=== PATIENT | male | born 1975 | race Caucasian/White ===

== ENCOUNTER → 2018-09-05 | Outpatient (CLI) | payer BC ==
--- NOTE | 2018-09-06 09:59 | ECHOF ---
Referral Reason:R01.1 Cardiac Murmur MEASUREMENTS -------- HEIGHT: 180.3 cm WEIGHT: 90.7 kg BP: RVIDd: 2.5 cm (< 3.3) IVSd: 1.2 cm (0.6 - 1.1) LVIDd: 3.4 cm (3.9 - 5.3) LVPWd: 1.4 cm (0.6 - 1.1) IVSs: 1.7 cm LVIDs: 1.4 cm LVPWs: 1.9 cm LAESV Index (A-L): 21.24 ml/m Ao Diam: 2.8 cm (2.0 - 3.7) AV Cusp: 1.7 cm (1.5 - 2.6) LA Diam: 2.9 cm (2.7 - 3.8) EPSS: 0.2 cm RAP: 5.00 mmHg RVSP: 44.00 mmHg MV EF SLOPE: 89.66 mm/s (70 - 150) MV EXCURSION: 2.25 cm (> 18.000) FINDINGS -------- Sinus rhythm. This was a technically good study. The left ventricular size is normal. There is moderate concentric left ventricular hypertrophy. O verall left ventricular systolic function is normal with, an EF between 55 - 60 %. The right ventricle is normal in size. Normal LA size by volume 22+/-6 ml/m2. The right atrial size is normal. Interatrial and interventricular septum intact. The aortic valve is trileaflet and appears structurally normal. The mitral valve leaflets are mildly thickened. Severe mitral regurgitation is present. Moderate prolapse of the posterior mitral valve leaflet. Mild tricuspid regurgitation present. The right ventricular systolic pressure, as measured by Doppl er, is 44.00mmHg. Trace/mild (physiologic) pulmonic regurgitation. The aortic root size is normal. Normal inferior vena cava with normal inspiratory collapse consistent with estimated right atrial pre ssure of 5 mmHg. There is no pericardial effusion. CONCLUSIONS -------- 1. Sinus rhythm. 2. This was a technically good study. 3. The left ventricular size is normal. 4. There is moderate concentric left ventricular hypertrophy. 5. Overall left ventricular systolic function is normal with, an EF between 55 - 60 %. 6. The right ventricle is normal in size. 7. Normal LA size by volume 22+/-6 ml/m2. 8. The right atrial size is normal. 9. Interatrial and interventricular septum intact. 10. The aortic valve is trileaflet and appears structurally normal. 11. The mitral valve leaflets are mildly thickened. 12. Severe mitral regurgitation is present. 13. Moderate prolapse of the posterior mitral valve leaflet. 14. Mild tricuspid regurgitation present. 15. The right ventricular systolic pressure, as measured by Doppler, is 44.00mmHg. 16. Trace/mild (physiologic) pulmonic regurgitation. 17. The aortic root size is normal. 18. Normal inferior vena cava with normal inspiratory collapse consistent with estimated right atrial pressure of 5 mmHg. 19. There is no pericardial effusion. DIRECTOR OF OFFICIATING: Trini Patel RDCS
== END ==
LOC: RADECHMAIN 14:52
PROVIDERS: ATTEND Physician Assistant
DX: R01.1 Cardiac murmur, unspecified (principal); I08.1 Rheumatic disorders of both mitral and tricuspid valves
CPT/HCPCS: 93306

== ENCOUNTER → 2018-11-20 | Day surgery (SDC) | payer BC ==
[2018-11-15 15:25] VITALS: BMI 28.3
[~2018-11-20] MED LIST: BENZOCAINE SPRAY 1 CAN MUCOUS MEM ONE; MIDAZOLAM (PF) 2 MG/2 ML VIAL IV ONE; SODIUM CHLORIDE 0.9% 1,000 ML IV ONE; SODIUM CHLORIDE 0.9% 1,000 ML IV SCH; fentaNYL (PF) 50 MCG/ML 2 ML AMP IV ONE; fentaNYL (PF) 50 MCG/ML 2 ML AMP ONE
[2018-11-20 08:18] VITALS: TEMP 97.8
[2018-11-20 09:19] VITALS: RESP 14
--- NOTE | 2018-11-20 09:49 | ECHOT ---
TRANSESOPHAGEAL ECHOCARDIOGRAM INDICATION: Mitral regurgitation. PROCEDURE NOTE: After obtaining informed consent, transesophageal echocardiogram was performed in left lateral position using an Omni plane probe. Local and IV sedation were obtained using Xylocaine spray, 3 mg of Versed and 50 mcg of fentanyl. The patient was gagging and actually pulled out the tube, so I had to reintubate him, but otherwise tolerated the procedure well. The patient received moderate conscious sedation and total sedation time was 11 minute. FINDINGS: 1. Mitral valve - There is prolapse of the posterior mitral leaflet with moderate to severe anteriorly directed mitral regurgitation. 2. Left ventricle has normal size and systolic function with an ejection fraction of 60%. 3. There is mild left atrial enlargement. 4. Right atrium right ventricle exam within normal limits. 5. Interatrial septum. There is no evidence of dfbn-vl-[id number] shunt by color-flow Doppler or nlquq-ct-ywqc shunt by agitated saline contrast study. 6. Aortic valve is a 3-leaflet valve. There is no evidence of exercise regurgitation. 7. There is mild tricuspid regurgitation. 8. Aorta is free of significant atherosclerotic changes. CONCLUSION: 1. Moderate to severe anteriorly directed mitral regurgitation secondary to posterior mitral valve prolapse. 2. Normal left ventricular size and systolic function. PLAN: Patient does not require mitral valve repair at this time. Will continue with careful monitoring every 6 months and repeat echoes every year. MMODL / IJN: [id number] /
[2018-11-20 11:05] VITALS: BP 120/66; PULSE 74
== END ==
LOC: CATHCVL 07:58
PROVIDERS: ATTEND Internal Medicine Cardiovascular Disease
DX: I08.1 Rheumatic disorders of both mitral and tricuspid valves (principal); I34.1 Nonrheumatic mitral (valve) prolapse; I10 Essential (primary) hypertension; R94.31 Abnormal electrocardiogram [ECG] [EKG]; E78.2 Mixed hyperlipidemia; Z82.49 Family history of ischemic heart disease and other diseases of the circulatory system; Z79.899 Other long term (current) drug therapy; Z88.0 Allergy status to penicillin
CPT/HCPCS: 93312; 93325; J3010; J2250; 93320

== ENCOUNTER 2018-11-23 10:08 | Emergency (ER) | payer BC ==
[2018-11-23] MEDS ORDERED: SODIUM CHLORIDE 0.9% 1,000 ML IV STA (10:32)
[2018-11-23] MEDS ORDERED: KETOROLAC 30 MG/ML 1 ML VIAL IVP STA (10:33)
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
[2018-11-23 11:18] LABS: Basophils % (A) 0 %; Eosinophils # (A) 0.1 k/uL (0-0.7); Eosinophils % (A) 1 %; HCT 47.9 % (39.0-53.0); HGB 15.8 gm/dL (13.0-17.5); Lymphocytes # (A) 1.3 k/uL (1.0-4.8); Lymphocytes % (A) 13 %; MCH 31.7 pg (25.0-35.0); MCV 95.9 fL (80.0-100.0); Mean Platelet Volume 6.7; Monocytes # (A) 0.4 k/uL (0-1.0); Monocytes % (A) 4 %; Neutrophils # (A) 8.7 k/uL (1.3-7.7); Neutrophils % (A) 82 %; Platelet Count 191 k/uL (150-450); RDW 14.4 % (11.5-15.5); WBC 10.6 k/uL (3.8-10.6)
[2018-11-23 11:26] LABS: Albumin 4.6 g/dL (3.5-5.0); Calcium 9.9 mg/dL (8.4-10.2); Total Bilirubin 0.7 mg/dL (0.2-1.3); Total Protein 7.5 g/dL (6.3-8.2)
--- NOTE | 2018-11-23 11:31 | US ---
EXAMINATION TYPE: US scrotum with doppler. Grayscale and color Doppler Duplex imaging performed of cheo hung scrotum. DATE OF EXAM: 11/23/2018 COMPARISON: NONE CLINICAL HISTORY: Pain. Extreme pain today in testicle, specifically right RLQ/inguinal canal, no inj ury, no bulging per patient EXAM MEASUREMENTS: TESTICLES: Right Testicle: 4.8 x 3.3 x 2.1 cm Left Testicle: 4.4 x 3.1 x 2.6 cm EPIDIDYMIS HEAD: Right Epididymis: 0.9 cm Left Epididymis: 1.1 cm Doppler performed to assess for testicular vascularity; testicular echotexture is homogenous and symm etric. Arterial waveform and color-flow are present within both testes. Presence of hydroceles: mil d bilaterally Presence of varicoceles: no Scanned RLQ/Inguinal canal at area of pain - no obvious hernia or abnormality seen IMPRESSION: Normal testicular ultrasound. Small hydroceles
[2018-11-23 11:59] LABS: Amorphous Sediment,Urine Occasional /hpf; Appearance,Urine Clear (Clear); Bilirubin,Urine Negative (Negative); Blood,Urine Large (Negative); Color,Urine Yellow; Glucose,Urine (UA) Negative (Negative); Ketones,Urine Negative (Negative); Leukocyte Esterase,Urine Negative (Negative); Mucus,Urine Few /hpf; Nitrite,Urine Negative (Negative); PH, Urine 5.5 (5.0-8.0); Protein,Urine Trace (Negative); RBC,Urine 182 /hpf (0-5); Specific Gravity,Urine 1.018 (1.001-1.035); Urobilinogen,Urine <2.0 mg/dL (<2.0); WBC,Urine 3 /hpf (0-5)
--- NOTE | 2018-11-23 12:08 | CT ---
EXAMINATION TYPE: CT abdomen pelvis wo con DATE OF EXAM: 11/23/2018 COMPARISON: Ultrasound same date HISTORY: testicular pain and swelling, hernia vs renal stone CT DLP: 578.1 mGycm Automated exposure control for dose reduction was used. TECHNIQUE: Helical acquisition of images from the lung bases through the pelvis. FINDINGS: Lack of intravenous contrast could compromise the exam. Small umbilical hernia contains fat . LUNG BASES: Minimal patchy basilar density posteriorly likely represents atelectatic change, no pleur al or pericardial effusion AORTA: No significant abnormality is appreciated. LIVER/GB: No significant abnormality is appreciated. PANCREAS: No significant abnormality is seen. SPLEEN: No significant abnormality is seen. ADRENALS: No significant abnormality is seen. KIDNEYS: Right kidney shows perinephric inflammatory change. There is a nonobstructive calculus at th e mid to lower pole measuring approximately 5 mm. There is some periureteral increased attenuation. S ome mild prominence of the right ureter. REPRODUCTIVE ORGANS: No significant abnormality is seen. URINARY BLADDER: Small dependent calculus is present within the posterior bladder measuring approxim ately 4 mm BOWEL: No significant abnormality is seen. Appendix is normal. FREE AIR: No Free Air is visible. ASCITES: None visible. PELVIC ADENOPATHY: None visualized. RETROPERITONEAL ADENOPATHY: No Retroperitoneal Adenopathy visible. OSSEOUS STRUCTURES: Degenerative disc changes noted at the lumbosacral junction, there is vacuum phe nomenon and loss of disc height. IMPRESSION: RIGHT-SIDED NEPHROLITHIASIS. CALCULUS WITHIN THE URINARY BLADDER LIKELY DUE TO RECENTLY PASSED URETER AL CALCULUS
[2018-11-23 13:18] VITALS: BP 147/87; PULSE 78; RESP 18; TEMP 97.5
== END 2018-11-23 13:16 | disposition home or self-care (01) ==
LOC: EC 10:08
DX: N20.0 Calculus of kidney (principal); N43.3 Hydrocele, unspecified; N50.811 Right testicular pain; E78.5 Hyperlipidemia, unspecified; I10 Essential (primary) hypertension; Z88.0 Allergy status to penicillin; Z79.899 Other long term (current) drug therapy
CPT/HCPCS: 36415; 80053; 85025; 81001; 93975; 76870; 74176; 99284; 96374; 96361; J1885

== ENCOUNTER → 2019-01-07 | Outpatient (CLI) | payer BC ==
[2019-01-07 18:02] LABS: Appearance,Urine Clear (Clear); Bilirubin,Urine Negative (Negative); Blood,Urine Negative (Negative); Color,Urine Yellow; Glucose,Urine (UA) Negative (Negative); Ketones,Urine Negative (Negative); Leukocyte Esterase,Urine Negative (Negative); Nitrite,Urine Negative (Negative); Protein,Urine Negative (Negative); Specific Gravity,Urine 1.023 (1.001-1.035)
[2019-01-07 18:03] LABS: Basophils # (A) 0.1 k/uL (0-0.2); Basophils % (A) 1 %; Eosinophils # (A) 0.1 k/uL (0-0.7); Eosinophils % (A) 1 %; HGB 16.6 gm/dL (13.0-17.5); Lymphocytes # (A) 2.5 k/uL (1.0-4.8); Lymphocytes % (A) 38 %; MCH 31.3 pg (25.0-35.0); MCHC 33.1 g/dL (31.0-37.0); MCV 94.7 fL (80.0-100.0); Mean Platelet Volume 6.5; Monocytes # (A) 0.5 k/uL (0-1.0); Monocytes % (A) 7 %; Neutrophils # (A) 3.2 k/uL (1.3-7.7); Neutrophils % (A) 49 %; Platelet Count 225 k/uL (150-450); RBC 5.28 m/uL (4.30-5.90); RDW 12.9 % (11.5-15.5); WBC 6.6 k/uL (3.8-10.6)
[2019-01-07 18:15] LABS: African American GFR (CKD) >90 (>60 ml/min/1.73 sqM); Anion Gap 8 mmol/L; Blood Urea Nitrogen 19 mg/dL (9-20); Carbon Dioxide 28 mmol/L (22-30); Chloride 100 mmol/L (98-107); Potassium 4.2 mmol/L (3.5-5.1); Sodium 136 mmol/L (137-145)
== END | disposition home or self-care (01) ==
LOC: LABPAT 17:19
PROVIDERS: ATTEND Urology
DX: Z01.812 Encounter for preprocedural laboratory examination (principal); N20.0 Calculus of kidney
CPT/HCPCS: 36415; 80051; 81003; 82565; 84520; 85025

== ENCOUNTER 2019-01-14 06:14 | Day surgery (SDC) | payer BC ==
[2019-01-09 17:22] VITALS: BMI 28.3
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
[~2019-01-14 06:14] MED LIST changes: -BENZOCAINE SPRAY 1 CAN MUCOUS MEM ONE; +DEXAMETHASONE SOD PHOSPHATE 10 MG/ML 1 ML VIAL IV ONE; +LACTATED RINGERS 1,000 ML IV SCH; +LIDOCAINE 1% 20 ML VIAL (10MG/ML) FOR IV START INTRADERMA PRN; -MIDAZOLAM (PF) 2 MG/2 ML VIAL IV ONE; +ONDANSETRON 4 MG/2 ML VIAL IVP ONE; +Pre Op ABX Message 1 EACH MISC MISCELLANE ONE; -SODIUM CHLORIDE 0.9% 1,000 ML IV ONE; -SODIUM CHLORIDE 0.9% 1,000 ML IV SCH; -fentaNYL (PF) 50 MCG/ML 2 ML AMP IV ONE; -fentaNYL (PF) 50 MCG/ML 2 ML AMP ONE
[2019-01-14 06:57] VITALS: RESP 16
--- NOTE | 2019-01-14 07:19 | XR ---
EXAMINATION TYPE: XR KUB DATE OF EXAM: 01/14/2019 CLINICAL DATA: 43-year-old male preop for right kidney stone, PHH COMPARISON: None FINDINGS: Nonobstructive bowel gas pattern. Supine imaging limited for assessment free air. Scattered mild stoo l. 2 to 3 mm calculus projecting at the mid to lower pole of the right kidney. Bowel content obscures mu ch of the left renal shadow. Degenerative disc disease at L5-S1. IMPRESSION: A 2 to 3 mm right mid to lower pole renal calculus.
[2019-01-14] MEDS ORDERED: PROPOFOL 10 MG/ML 20 ML VIAL IV ONE (07:43)
[2019-01-14] MEDS ORDERED: fentaNYL (PF) 50 MCG/ML 2 ML AMP ONE (07:43)
[2019-01-14] MEDS ORDERED: MIDAZOLAM 2 MG/2 ML VIAL ONE (07:43)
--- NOTE | 2019-01-14 08:46 | P.OP ---
Date of Procedure: 01/14/19 Preoperative Diagnosis: Right renal calculus Postoperative Diagnosis: Same Procedure(s) Performed: Right extracorporal shockwave lithotripsy (ESWL) Anesthesia: CATALINO Surgeon: Carloz Jimenez Estimated Blood Loss (ml): 0 IV fluids (ml): 400 Pathology: none sent Condition: stable Disposition: PACU Indications for Procedure: The patient is a 43-year-old white male with a history of recurrent urolithiasis. He recently passed a calculus. A computed tomography scan shows a 4-5 mm right lower pole renal calculus, for which he has elected to undergo ESWL. Operative Findings: Questionable fragmentation Description of Procedure: The patient was taken to the operating room and placed on the [employer] Delta II lithotripter in the supine position. The calculus was seen on biplanar fluoroscopy. Once the patient was properly positioned and sedated, lithotripsy was performed. The energy level was gradually increased per protocol, to an energy level of 5. After 200 shocks were administered, a 2 minute pause was instituted per protocol. A total of 2500 shocks were given at a rate of 80 shocks per minute. Fluoroscopy was utilized at a minimum to ensure proper positioning and determine the treatment status. The appearance of the calculus appeared to change, suggesting fragmentation had occurred. The patient tolerated the procedure well was taken to the recovery room in stable condition. Instructions were given to strain the urine, and the patient will follow-up within one week.
[2019-01-14 09:15] VITALS: TEMP 97
[2019-01-14 09:59] VITALS: BP 123/74; PULSE 78
== END 2019-01-14 10:56 | disposition home or self-care (01) ==
LOC: ORWHC2ENDO 06:14
PROVIDERS: ATTEND Urology
DX: N20.0 Calculus of kidney (principal); E78.5 Hyperlipidemia, unspecified; I10 Essential (primary) hypertension; I34.0 Nonrheumatic mitral (valve) insufficiency; Z83.6 Family history of other diseases of the respiratory system; Z82.49 Family history of ischemic heart disease and other diseases of the circulatory system; Z79.82 Long term (current) use of aspirin; Z79.51 Long term (current) use of inhaled steroids; Z79.899 Other long term (current) drug therapy; Z88.0 Allergy status to penicillin
CPT/HCPCS: 74018; 50590; J2250; J1100; J2405; J3010; J2704

== ENCOUNTER → 2019-01-21 | Outpatient (CLI) | payer BC ==
--- NOTE | 2019-01-21 13:11 | XR ---
KUB HISTORY: Postop lithotripsy, kidney stones, N 20.0 Frontal KUB and 2 images correlated to prior KUB 01/14/2019, CT 11/23/2018 No evident renal calcifications. There are overlying loops of bowel gas. No bowel obstruction or pneu moperitoneum. IMPRESSION: Nonspecific bowel gas pattern.
== END | disposition home or self-care (01) ==
LOC: RADXRMAIN 09:52
PROVIDERS: ATTEND Urology
DX: N20.0 Calculus of kidney (principal)
CPT/HCPCS: 74018

== ENCOUNTER → 2019-11-04 | Outpatient (CLI) | payer BC | END | disposition home or self-care (01) | LOC: LABWHC1 13:41 | PROVIDERS: ATTEND Pediatrics | DX: Z20.828 Contact with and (suspected) exposure to other viral communicable diseases (principal) ==

== ENCOUNTER 2023-02-24 06:11 | Day surgery (SDC) | payer BC ==
[2023-02-24] MEDS ORDERED: SODIUM CHLORIDE 0.9% 500 ML 500 ML IV ONE (06:54)
[2023-02-24 06:57] VITALS: RESP 18; TEMP 97.6
[2023-02-24] MEDS ORDERED: fentaNYL (PF) 50 MCG/ML 2 ML AMP ONE (07:36)
[2023-02-24] MEDS: BENZOCAINE SPRAY 1 CAN MUCOUS MEM ONE ×2 (07:40→07:47)
[2023-02-24] MEDS ORDERED: MIDAZOLAM 2 MG/2 ML VIAL IVP ONE (07:50)
[2023-02-24] MEDS ORDERED: fentaNYL (PF) 50 MCG/ML 2 ML AMP IVP ONE (07:50)
--- NOTE | 2023-02-24 08:35 | ECHOT ---
TRANSESOPHAGEAL ECHOCARDIOGRAM INDICATIONS: Mitral regurgitation. PROCEDURE NOTE: After obtaining informed consent, transesophageal echocardiogram was performed in left lateral position using an Omniplane probe. Local and IV sedation were obtained using Xylocaine spray, 2 mg of Versed and 50 mcg of fentanyl. The patient tolerated the procedure well without any obvious immediate complications. Total sedation time was 10 minutes. FINDINGS: 1. Mitral valve. There is prolapse of the P2 segment of the posterior mitral leaflet with moderate to severe eccentric mitral regurgitation. The vena contracta measures out to be 0.4 cm. I do not see any systolic flow reversal in the pulmonary vein. Left atrium, right atrium, right ventricle seen within normal limits. The left ventricle has normal size and an ejection fraction of around 65%. Tricuspid valve shows mild tricuspid regurgitation. Aortic valve is a 3-leaflet valve. There is no evidence of aortic stenosis or regurgitation. There is no evidence of txim-qg-rwmir shunt by color-flow Doppler or zbthe-ex-zgtt shunt by agitated saline contrast study. CONCLUSION: 1. Moderate to severe eccentric mitral regurgitation secondary to prolapse of the P2 scallop of the posterior mitral leaflet. 2. Vena contracta at 0.4 cm and there is no evidence of reversal of color flow into the pulmonary vein. 3. Left ventricle has normal size and systolic function. The end systolic dimension on a 2-D image is less than 4 cm. PLAN: The patient does not need mitral valve surgery at this time. I will see him back in the office in 6 months. MMODL / IJN: [id number] /
[2023-02-24 09:27] VITALS: BP 148/85; PULSE 78
== END 2023-02-24 09:15 | disposition home or self-care (01) ==
LOC: CATHCVL 06:11
PROVIDERS: ATTEND Internal Medicine Cardiovascular Disease
DX: I34.0 Nonrheumatic mitral (valve) insufficiency (principal); I34.1 Nonrheumatic mitral (valve) prolapse; E78.5 Hyperlipidemia, unspecified; Z88.1 Allergy status to other antibiotic agents; Z88.0 Allergy status to penicillin; Z79.899 Other long term (current) drug therapy
CPT/HCPCS: 93312; 93320; 93325; 99152; J2250; J3010

== ENCOUNTER → 2023-08-16 | Outpatient (CLI) | payer BC ==
--- NOTE | 2023-08-16 16:27 | XR ---
EXAMINATION TYPE: XR chest 2V DATE OF EXAM: 08/16/2023 3:39 PM CLINICAL INDICATION:Male, 47 years old with history of R059 COUGH; [facility] COMPARISON: None TECHNIQUE: XR chest 2V Frontal and lateral views of the chest. FINDINGS: Lungs/Pleura: There is no evidence of pleural effusion, focal consolidation, or pneumothorax. Pulmonary vascularity: Unremarkable. Heart/mediastinum: Cardiomediastinal silhouette is unremarkable. Musculoskeletal: No acute osseous pathology. Other findings: None IMPRESSION: No acute cardiopulmonary disease/process.
== END | disposition home or self-care (01) ==
LOC: RADXRYALE 15:27
PROVIDERS: ATTEND Physician Assistant Medical
DX: R05.9 Cough, unspecified (principal)
CPT/HCPCS: 71046

== ENCOUNTER 2024-11-02 14:02 | Emergency (ER) | payer BC ==
[2024-11-02 14:06] VITALS: RESP 20
--- NOTE | 2024-11-02 14:49 | XR ---
EXAMINATION TYPE: XR tibia fibula RT DATE OF EXAM: 11/02/2024 2:44 PM COMPARISON: None CLINICAL INDICATION: Male, 49 years old with history of Leg pain and swelling; PHH, pain TECHNIQUE: XR tibia fibula RT; examined in AP and lateral projections. FINDINGS: Prior fracture of the tibia with intramedullary nail in place. No new acute fractures defin itively visualized. There is good osseous fusion of prior fracture site. Soft tissue swelling through out the leg. No evidence for osseous erosion or subcutaneous gas. IMPRESSION: Prior fracture with intramedullary daylin. No evidence for a new acute fracture. Soft tissue swelling th roughout the leg. [facility], , 11/02/2024 2:47 PM
--- NOTE | 2024-11-02 14:50 | XR ---
EXAMINATION TYPE: XR foot complete RT DATE OF EXAM: 11/02/2024 2:44 PM COMPARISON: None CLINICAL INDICATION: Male, 49 years old with history of Leg pain and swelling; PHH, pain TECHNIQUE: XR foot complete RT examined in the AP, oblique, and lateral projections. FINDINGS: Soft tissue swelling without evidence of subcutaneous gas or erosion to suggest osteomyelitis. No kinga dence of any acute osseous pathology. IMPRESSION: Soft tissue signed throughout the foot without evidence of fracture.. [facility], , 11/02/2024 2:48 PM
--- NOTE | 2024-11-02 15:07 | US ---
EXAMINATION TYPE: US venous doppler duplex LE RT DATE OF EXAM: 11/02/2024 3:00 PM COMPARISON: NONE CLINICAL INDICATION: Male, 49 years old with history of Leg pain and swelling; Injury 1 week ago with increase in pain, swelling, and bruising. Patient denies any other signs, symptoms, or relevant hist ory , Pain TECHNIQUE: The lower extremity deep venous system is examined utilizing real time linear array sonog liberty with graded compression, color doppler sonography, and spectral doppler. SIDE PERFORMED: Right FINDINGS: VESSELS IMAGED: Common Femoral Vein Deep Femoral Vein Greater Saphenous Vein * Femoral Vein Popliteal Vein Small Saphenous Vein * Proximal Calf Veins (* superficial vessels) Right Leg: Negative for DVT, Color Doppler imaging shows patency of the vessels. Spectral waveforms are within normal limits. IMPRESSION: No ultrasound evidence for deep venous thrombosis. [facility], , 11/02/2024 3:05 PM
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
[2024-11-02 16:26] VITALS: BP 126/76; PULSE 80; TEMP 98
== END 2024-11-02 16:32 | disposition home or self-care (01) ==
LOC: EC 14:02
DX: S93.401A Sprain of unspecified ligament of right ankle, initial encounter (principal); S90.821A Blister (nonthermal), right foot, initial encounter; Z88.0 Allergy status to penicillin; X50.0XXA Overexertion from strenuous movement or load, initial encounter
CPT/HCPCS: 99284